=== PATIENT | male | born 1995 | race Caucasian/White ===

== ENCOUNTER 2018-03-16 15:28 | Inpatient (IN) | payer BC ==
--- NOTE | 2018-03-16 16:01 | ED ---
Substance Abuse/Use - HPI Summary HPI Summary: This is scribe Nicole James documenting for attending Kayode Barragan MD. 22 year old M BIB police on 941 to [facility] complains of altered mental status since two hours ago. Symptoms aggravated by nothing. Symptoms alleviated by nothing. Police report that aunt and mother called 911 because patient was not being himself. Police found patient on roof of his house, running around saying he was Batman. Per police, mother reports that patient's twin brother had psychotic break several months ago. Patient admits to smoking marijuana today. He states he slipped on roof and complains of abrasion on his left knee. - History Of Current Complaint Chief Complaint: EDOverdose Stated Complaint: 941 Time Seen by Provider: 03/16/18 15:50 Hx Obtained From: Patient, Other: - police Aggravating Factor(s): Nothing Alleviating Factor(s): Nothing - Allergies/Home Medications Allergies/Adverse Reactions: Allergies Allergy/AdvReac Type Severity Reaction Status Date / Time No Known Allergies Allergy Verified 03/16/18 15:41 Home Medications: Home Medications NK [No Home Medications Reported] 03/16/18 [History Confirmed 03/16/18] PMH/Surg Hx/FS Hx/Imm Hx Previously Healthy: No Endocrine/Hematology History: Denies: Hx Diabetes Cardiovascular History: Denies: Hx Hypertension Respiratory History: Denies: Hx Chronic Obstructive Pulmonary Disease (COPD) Sensory History: Reports: Hx Contacts or Glasses Opthamlomology History: Reports: Hx Contacts or Glasses Infectious Disease History: No Infectious Disease History: Denies: Traveled Outside the [place] in Last 30 Days - Family History Known Family History: Positive: Other - twin brother has hx psychotic break - Social History Alcohol Use: Occasionally Hx Substance Use: Yes Substance Use Type: Reports: Marijuana Hx Tobacco Use: Yes Smoking Status (MU): Former Smoker Review of Systems Positive: Other - abraison on left knee Positive: Other - altered mental status, patient admits to smoking marijuana All Other Systems Reviewed And Are Negative: Yes Physical Exam - Summary Physical Exam Summary: Appearance: The patient is well-nourished in no acute distress and in no acute pain. Skin: The skin is warm and dry and skin color reflects adequate perfusion. HEENT: The head is normocephalic and atraumatic. The pupils are 3-4 and reactive. The conjunctivae are clear and without drainage. Nares are patent and without drainage. Mouth reveals moist mucous membranes and the throat is without erythema and exudate. The external ears are intact. The ear canals are patent and without drainage. The tympanic membranes are intact. Neck: The neck is supple with full range of motion and non-tender. There are no carotid bruits. There is no neck vein distension. Respiratory: Chest is non-tender. Lungs are clear to auscultation and breath sounds are symmetrical and equal. Cardiovascular: Heart is regular rate and rhythm. There is no murmur or rub auscultated. There is no peripheral edema and pulses are symmetrical and equal. Abdomen: The abdomen is soft and non-tender. There are normal bowel sounds heard in all four quadrants and there is no organomegaly palpated. Musculoskeletal: There is no back tenderness noted. Extremities are non-tender with full range of motion. There is good capillary refill. There is no peripheral edema or calf tenderness elicited. Neurological: Patient is alert and oriented to person, place and time. The patient has symmetrical motor strength in all four extremities. Cranial nerves are grossly intact. Deep tendon reflexes are symmetrical and equal in all four extremities. Psychiatric: The patient has an appropriate affect and does not exhibit any anxiety or depression. Triage Information Reviewed: Yes Vital Signs On Initial Exam: Initial Vitals Temp Pulse Resp BP Pulse Ox 99.7 F 81 18 145/88 99 03/16/18 15:32 03/16/18 15:32 03/16/18 15:32 03/16/18 15:32 03/16/18 15:32 Vital Signs Reviewed: Yes Diagnostics - Vital Signs Vital Signs Temp Pulse Resp BP Pulse Ox 03/16/18 15:50 78 16 99 03/16/18 15:49 70 15 145/84 100 03/16/18 15:32 99.7 F 81 18 145/88 99 - Laboratory Result Diagrams: 03/16/18 16:19 03/16/18 16:19 Lab Statement: Any lab studies that have been ordered have been reviewed, and results considered in the medical decision making process. Course/Dx - Course Course Of Treatment: Mr. Abbott was brought in by the police. He was running around on the second story roof during a thunderstorm proclaiming that he was Batman. He did admit to smoking some marijuana today. His twin brother apparently suffered his initial psychotic break a few months ago. He sustained an abrasion to his left knee. Here in the emergency department he was manic but cooperative. Labs were obtained and his tox screen was positive only for marijuana. He is at this point awaiting mental health eval. He has been medically cleared. - Diagnoses Provider Diagnoses: Acute psychosis Discharge - Sign-Out/Discharge Documenting (check all that apply): Sign-Out Patient Signing out patient TO: Yazan Wyatt - awaiting MHE, pending dispo - Discharge Plan Referrals: No Primary Care Phys,NOPCP [Primary Care Provider] -
[2018-03-16 16:29] LABS: ABS Basophils 0.1 10^3/ul (0-0.2); ABS Eosinophils 0.4 10^3/ul (0-0.6); ABS Monocytes 1.3 10^3/ul (0-0.8); ABS Nucleated RBC 0 10^3/ul; Eosinophil % 2.7 % (0-6); Hematocrit 45 % (42-52); Hemoglobin 15.2 g/dl (14.0-18.0); Lymphocyte % 13.3 % (25-47); Mean Corpuscular HGB Conc 34 g/dl (31-36); Mean Corpuscular Hemoglobin 30 pg (27-31); Mean Corpuscular Volume 89 fL (80-94); Mean Platelet Volume 7.8 um3 (7.4-10.4); Nucleated Red Blood Cells % 0.1; Platelet Count 263 10^3/ul (150-450); Red Blood Count 4.99 10^6/ul (4.00-5.40); Red Cell Distribution Width 13 % (10.5-15); White Blood Count 14.8 10^3/ul (3.5-10.8)
[2018-03-16 18:03] LABS: Urine Appearance Clear; Urine Blood Negative (Negative); Urine Color Yellow; Urine Ketones Negative (Negative); Urine Protein Negative (Negative); Urine Specific Gravity 1.013 (1.010-1.030); Urine Urobilinogen Negative (Negative)
[2018-03-16] MEDS ORDERED: LORazepam TAB(*) 1 MG ONE (21:09)
[2018-03-16] MEDS ORDERED: LORazepam TAB(*) 1 MG PO ONE (21:10)
--- NOTE | 2018-03-16 22:01 | ED ---
Progress - Progress Note Progress Note: A B-52 was ordered due to the pt being non-cooperative. Re-Evaluation - Re-Evaluation First Eval Re-Evaluation Time: 21:56 Change: Worse Comment: Pt is non-cooperative. B-52 is ordered. Course/Dx - Course Course Of Treatment: A B-52 was ordered. Pending transfer. - Diagnoses Provider Diagnoses: Drug-induced mood disorder Discharge - Sign-Out/Discharge Documenting (check all that apply): Patient Departure - Transfer, Sign-Out Patient, Receiving Sign-Out Signing out patient TO: Patrick Clark Receiving patient FROM: Ravindra Tanner - Discharge Plan Referrals: No Primary Care Phys,NOPCP [Primary Care Provider] -
[2018-03-16] MEDS ORDERED: LORazepam INJ* 2 MG/ML 1 ML VIAL ONE (22:05)
[2018-03-16] MEDS ORDERED: diPHENhydraMINE IV* 50 MG/ML 1 ml VIAL (BENADRYL) ONE (22:05)
[2018-03-16] MEDS ORDERED: Haloperidol INJ IV/IM* 5 MG/ML AMP ONE (22:05)
[2018-03-17] MEDS ORDERED: Al Hydrox/Mg Hydrox/Simet LIQ* 30 ML UDC PO PRN (14:54)
[2018-03-17] MEDS ORDERED: Nicotine Inhaler* 10 MG AMP INH PRN (14:54)
[2018-03-17] MEDS ORDERED: Acetaminophen TAB* 325 MG PO PRN (14:54)
[2018-03-17] MEDS ORDERED: Haloperidol TAB* 5 MG ONE (15:12)
[2018-03-17] MEDS ORDERED: diPHENhydraMINE PO* 50 MG ONE (15:12)
[2018-03-17] MEDS: diPHENhydraMINE PO* 50 MG PO PRN ×2 (15:13→22:43)
[2018-03-17] MEDS: LORazepam TAB(*) 1 MG PO PRN ×2 (15:13→22:43)
[2018-03-17] MEDS: Haloperidol TAB* 5 MG PO PRN ×2 (15:13→22:42)
[2018-03-17] MEDS ORDERED: LORazepam INJ* 2 MG/ML 1 ML VIAL ONE (15:15)
[2018-03-17] MEDS ORDERED: diPHENhydraMINE IV* 50 MG/ML 1 ml VIAL (BENADRYL) ONE (15:16)
[2018-03-17] MEDS ORDERED: Haloperidol INJ IV/IM* 5 MG/ML AMP ONE (15:16)
[2018-03-17] MEDS ORDERED: OLANzapine TAB*ODT* 5 MG PO ONE (16:40)
[2018-03-17] MEDS ORDERED: OLANzapine TAB*ODT* 5 MG PO SCH (21:00)
[2018-03-18] MEDS: diPHENhydraMINE PO* 50 MG PO PRN (10:25)
[2018-03-18] MEDS ORDERED: OLANzapine TAB* 10 MG PO ONE (11:09)
--- NOTE | 2018-03-18 11:53 | HP ---
H&P (Free Text) History and Physical: JUSTIFICATION FOR ADMISSION: Patient presented to emergency room with worsening of psychotic agitation, delusional and disorganized thinking. He requires inpatient psychiatric admission in order to provide treatment and stabilization as he is a danger to himself and others. CHIEF COMPLAINT: "I want to leave Source of Information: Patient and chart review HISTORY OF THE PRESENT ILLNESS: Patient is 22 y/o male, single, living with parents in [place], studying a [employer] university , with history of no formal psychiatric disorder but history of abusing cannabis. Patient was admitted to inpatient unit for worsening of psychotic and delusional thinking with agitation, patient on the unit has been banging on the door, flipped his bed, restless, agitated, psychotic with delusional and disorganized thinking. Patient has been compliant with oral medication and also been given PRN to help with agitation and unstable mood and aggression. Patient reports that he has been consuming cannabis regularly and recently traveled to [place] with his friends for a vacation and his psychotic and delusional behavior lead to E.D visit and then hospitalization. Patient is hyper verbal, with decreased sleep, tangential thoughts, impulsivity and mood irritability. Patient reports no depression but do report some stress at college and believes that cannabis has been helping him. Patient denied any suicidal or homicidal ideation on the unit. Patient continued to exhibit behavior that is irrational, illogical, impulsive and delusional with extreme agitations and aggression requiring PRN medications. PAST PSYCHIATRIC HISTORY: Patient has history of no inpatient psychiatric hospitalization. Patient has history of no outpatient psychiatric treatment. Patient is on no psychotropic medications. Patient reports no inpatient or outpatient drug treatment. Patient has no history of suicidal thoughts or plan. Patient has history of no homicidal threats or attempt. Patient has history of aggressive and agitated behavior when decompensates and reports that he was a difficult child for his parents and would act out and not follow rules but has improved as he grows up. No access to firearm reported. SUBSTANCE ABUSE HISTORY: Patient uses cannabis daily unspecified amount with his friends. Urine toxicology was positive for cannabis. Last use was before E.D visit. Patient has been in no inpatient and outpatient treatment for drugs. PAST MEDICAL HISTORY: No active medical problems ALLERGIES: NKA FAMILY PSYCHIATRIC HISTORY: Patient has family history of bipolar disorder in his identical twin brother that was diagnoses couple of years ago and was treated with Zyprexa. Patient has history of cannabis abuse substance abuse in family and alleges that his father has used it for 40 years. No reported suicide in the family. FAMILY/PSYCHOSOCIAL HISTORY: Patient currently lives with parents in [place]. Patient is single and is studying at [employer] for last 2 years. Patient has no children. Patient was raised by both parents in [place], patient reports both him and his brother was a difficulty child and were oppositional with rules. Patient support system includes family and friends. REVIEW OF SYSTEMS: Patients review of symptoms was negative for any physical complaint. But patient has been agitated and unstable in his mood. Patients ED physical exam was reviewed which is grossly normal with no active medical problem. MENTAL STATUS EXAMINATION: Appearance: dressed in hospital gown, making limited eye contact, restless Behavior: agitated and, impulsive and superficially cooperative Gait: normal Abnormal motor activity: none Speech: hyper verbal, increased rate and rhythm, copious and pressured Mood: angry Affect: labile, irritable Thought process: illogical, tangential and disorganized Thought Content: Suicidal/Homicidal ideation: none Delusions: paranoid about his teacher being the reason he is in the hospital Obsessions: none Phobia: none Perceptual disturbance: Attention: limited Orientation: grossly intact Concentration: impaired Memory: fair but not able to coherently give details Insight: poor Judgment: poor Impulse control: poor IMPRESSION: Patient with history of no form al psychiatric diagnosis. Patient currently admitted due to worsening of psychosis and manic symptoms. Patient has also struggled with his cannabis abuse likely adding to his symptoms. Patient is a danger to self and others if discharged hence will be stabilized on inpatient unit with medication adjustments and therapy. DIAGNOSES: Psychotic Disorder unspecified, Cannabis Abuse PLAN: Admit to [facility] on Constant observation. Patient is full code. Patient is on involuntary admission status Integrate patient into the milieu and therapy. Social work consults for therapy and discharge planning Will hold family meeting with parents to increase Data base. Patient gave informed consent to start the following medications: Zyprexa as standing medication, currently on 5 mg at bedtime will increase to 10 mg HS. Patient was given one dose of Zyprexa 10 mg this morning for severe agitation and aggression. Will change Haldol and Ativan to Thorazine for PRN. Will continue to monitor and f/u for improvement and side effects. Joana Miller MD Attending Psychiatrist
[2018-03-18] MEDS: Divalproex DR TAB(*) 500 MG PO SCH ×2 (16:03→22:26)
[2018-03-18] MEDS ORDERED: diPHENhydraMINE PO* 50 MG PO SCH (21:00)
[2018-03-18] MEDS ORDERED: OLANzapine TAB*ODT* 5 MG PO SCH (21:00)
[2018-03-18] MEDS: chlorproMAZINE TAB* 25 MG PO PRN (22:31)
[2018-03-18] MEDS ORDERED: LORazepam TAB(*) 1 MG ONE (22:50)
[2018-03-18] MEDS ORDERED: LORazepam TAB(*) 1 MG PO ONE (23:00)
[2018-03-19] MEDS: diPHENhydraMINE PO* 50 MG PO PRN ×2 (01:35→08:20)
[2018-03-19] MEDS: Divalproex DR TAB(*) 500 MG PO SCH (08:20)
[2018-03-19] MEDS: chlorproMAZINE TAB* 25 MG PO PRN (11:08)
--- NOTE | 2018-03-19 11:19 | PN ---
Subjective - Subjective Date of Service: 03/19/18 Service Type: [id number] Hosp care 15 min low complexity Subjective: Patient was seen by self, discussed with treatment team, chart was reviewed. Patient has been compliant with his medications, no reported side effects. Patient has limited improvement in his symptoms of manic and psychosis. Patient continues think that his professor that dies 3 and half years ago is still alive. Patient persevered on his dream last night about that as well. Patient continued to be hyper verbal, easily distractable, euphoric to irritable in his mood, requires multiple redirections from staff. Patient sleeping has been erratic last night required multiple PRN medications that helped him to get about 3 + hours of interrupted sleep. Patient eating has been fair. Patient has been cooperative with his constant observation staff requiring multiple redirections. Patient behavior has been intermittently agitated but calms down with prns and redirections. Patient mood was more anxious today. Patient has been reporting no suicidal or homicidal ideation. No hallucinations reported. Objective - Appearance Appearance: Healthy Appearing Dysmorphic Features: No Grooming: Disheveled - Behavior Psychomotor Activities: Abnormal-Increased Exhibits Abnormal Movement: No - Attitude and Relatedness Attitude and Relatedness: Superficially Cooperative Eye Contact: Fair - Speech Quality: Pressured Latencies: Short Quantity: Copious - Mood Patient's Decription of Mood: "Great" - Affect Observed Affect: Labile Affect Consistent with: Euphoria - Thought Process Patient's Thought Process: Disorganized, Tangential Thought Content: Yes Paranoid Ideation, No Passive Wish, No Suicidal Planning, No Homicidal Ideation - Sensorium Experiencing Hallucinations: No, Sensorium is Clear Type of Hallucinations: Visual: No, Auditory: No, Command: No - Level of Consciousness Level of Consciousness: Alert Orientation: Yes Intact, Yes Orientated to Time, Yes Orientated to Place, Yes Orientated to Person - Impulse Control Impulse Control: Impaired - Insight and Judgement Insight and Judgement: Poor - Group Participation Particating in Group Activities: No - Medication Management Medication Management Adherence: Yes Assessment - Assessment Merits Inpatient Hospitalization: For Immediate Safety, For Stabilization, For Discharge Planning Inpatient DSM-V Dx: F31.2 Clinical Impression: Patient with history of no formal psychiatric diagnosis, presented to [facility] with manic and psychotic symptoms and was admitted to inpatient unit. Patient has also been abusing cannabis heavily unspecified amount. Patient is a danger to self if discharged hence medications are being adjusted and symptoms will be stabilized on inpatient. Plan - Plan Treatment Plan: Name: JAMIL STOKES Birthdate: 1995 [id number] - Patient continues to be hospitalized due to mood and behavioral instability, anxiety and impulsivity. - Patient's medications were adjusted after informed consent with initiation of seroquel 50mg QAM and 100mg QHS. Ativan was initiated for PRN anxiety. - Patient Depakote was increased to 500mg QAM and 750mg QHS. - Patient will be monitored for improvement and side effects. Risk and benefits were discussed. - Patient was encouraged to continue his participation in the milieu, group and individual therapy. Medications: Current Medications Acetaminophen (Tylenol Tab*) 650 mg PO Q4H PRN PRN Reason: for pain; or Temp >101 F Al Hydrox/Mg Hydrox/Simethicone (Maalox Plus*) 30 ml PO Q4H PRN PRN Reason: INDIGESTION Diphenhydramine HCl (Benadryl Po*) 50 mg PO Q6H PRN PRN Reason: ANXIETY Last Admin: 03/19/18 08:20 Dose: 50 mg Divalproex Sodium (Depakote Dr Tab(*)) 500 mg PO BID [facility] Last Admin: 03/19/18 08:20 Dose: 500 mg Lorazepam (Ativan Tab(*)) 2 mg PO Q6H PRN PRN Reason: ANXIETY Nicotine (Nicotine Inhaler*) 10 mg INH Q2H PRN PRN Reason: CRAVING Quetiapine Fumarate (Seroquel Tab*) 100 mg PO BEDTIME [facility] Quetiapine Fumarate (Seroquel Tab*) 50 mg PO DAILY [facility]
[2018-03-19] MEDS ORDERED: Divalproex DR TAB(*) 250 MG PO ONE (11:34)
[2018-03-19] MEDS ORDERED: Divalproex ER TAB(*) 250 MG ONE (11:47)
[2018-03-19] MEDS: LORazepam TAB(*) 1 MG PO PRN (11:48)
[2018-03-19] MEDS ORDERED: QUEtiapine TAB* 25 MG PO SCH (12:00)
--- NOTE | 2018-03-19 17:01 | PN ---
[facility]HU: Group Therapy Note - Service Type Service Type: [id number] Group Psychotherapy - Group Participation Patient Participating in Group: Yes Level of Group Participation: Attentive Relatedness to Group: Other - Additional Group Comments Group Comments: Patel related relatively psychotically during group. He was pleasant, although he began talking so personally about himself others in the group disengaged. he was pleasantly redirectable.
[2018-03-19] MEDS: Divalproex DR TAB(*) 250 MG PO SCH (20:47)
[2018-03-19] MEDS ORDERED: Divalproex DR TAB(*) 500 MG PO SCH (21:00)
[2018-03-19] MEDS ORDERED: QUEtiapine TAB* 100 MG PO SCH (21:00)
[2018-03-20] MEDS ORDERED: QUEtiapine TAB* 25 MG ONE (04:59)
[2018-03-20] MEDS: LORazepam TAB(*) 1 MG PO PRN (05:30)
[2018-03-20] MEDS: QUEtiapine TAB* 25 MG PO SCH (08:42)
[2018-03-20] MEDS: Divalproex DR TAB(*) 250 MG PO SCH ×2 (08:42→20:35)
[2018-03-20] MEDS ORDERED: Divalproex DR TAB(*) 500 MG PO SCH (09:00)
--- NOTE | 2018-03-20 12:46 | PN ---
Subjective - Subjective Date of Service: 03/20/18 Service Type: 11133 Hosp care 15 min low complexity Subjective: Patient was seen by self, discussed with treatment team, chart was reviewed. Patient has been compliant with his medications, no reported side effects. Patient has some more improvement in his symptoms of mitch and psychosis. Patient still disorganized in his thinking and behavior but some improvement. Patient reported being closed to his teacher that and he was earlier during this hospitalization talk about possibility of him being alive. Patient was able to understand irreversibility of his and was not blaming himself for his teachers . Patient was less hyper verbal, easily distracted , less labile, less euphoric in his mood, still requires multiple redirections from staff. Patient sleeping was less erratic last night required and was able to sleep little better than last night. Patient required Ativan concrete worker to help with anxiety. Patient eating has been fair. Patient has been cooperative with his constant observation staff requiring multiple redirections. Patient behavior has been less agitated and calms down with support redirections. Patient mood was less anxious today. Patient has been reporting no suicidal or homicidal ideation. No hallucinations reported. Objective - Appearance Appearance: Healthy Appearing Dysmorphic Features: No Hygiene: Normal Grooming: Fairly Well Kept - Behavior Psychomotor Activities: Abnormal-Increased - Attitude and Relatedness Attitude and Relatedness: Superficially Cooperative Eye Contact: Fair - Speech Quality: Pressured - less Latencies: Short Quantity: Copious - less - Mood Patient's Decription of Mood: "Great" - Affect Observed Affect: Labile Affect Consistent with: Euphoria - Thought Process Patient's Thought Process: Disorganized - less, Tangential - less Thought Content: No Passive Wish, No Suicidal Planning, No Homicidal Ideation, No Paranoid Ideation - Sensorium Experiencing Hallucinations: No, Sensorium is Clear Type of Hallucinations: Visual: No, Auditory: No, Command: No - Level of Consciousness Level of Consciousness: Alert Orientation: Yes Intact, Yes Orientated to Time, Yes Orientated to Place, Yes Orientated to Person - Impulse Control Impulse Control: Impaired - Insight and Judgement Insight and Judgement: Poor - Group Participation Particating in Group Activities: Yes - Medication Management Medication Management Adherence: Yes Assessment - Assessment Merits Inpatient Hospitalization: For Immediate Safety, For Stabilization, For Discharge Planning 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 Patient has also been abusing cannabis heavily unspecified amount. Patient is a danger to self if discharged hence medications are being adjusted and symptoms will be stabilized on inpatient. Plan - Plan Treatment Plan: Name: JAMIL STOKES Birthdate: 1995 [id number] - Patient continues to be hospitalized due to mood and behavioral instability, anxiety and impulsivity. - Patient's medications were adjusted after informed consent with increment of seroquel to 50mg QAM and 150mg QHS. Ativan for PRN anxiety. - Patient Depakote was increased to 750mg BID and will depakote levels to be obtained 03/22/18 with cmp. - Patient will be monitored for improvement and side effects. Risk and benefits were discussed. - Patient was encouraged to continue his participation in the milieu, group and individual therapy. Medications: Current Medications Acetaminophen (Tylenol Tab*) 650 mg PO Q4H PRN PRN Reason: for pain; or Temp >101 F Al Hydrox/Mg Hydrox/Simethicone (Maalox Plus*) 30 ml PO Q4H PRN PRN Reason: INDIGESTION Diphenhydramine HCl (Benadryl Po*) 50 mg PO Q6H PRN PRN Reason: ANXIETY Last Admin: 03/19/18 08:20 Dose: 50 mg Divalproex Sodium (Depakote Dr Tab(*)) 750 mg PO BID [facility] Last Admin: 03/20/18 08:42 Dose: 750 mg Lorazepam (Ativan Tab(*)) 2 mg PO Q6H PRN PRN Reason: ANXIETY Last Admin: 03/20/18 05:30 Dose: 2 mg Nicotine (Nicotine Inhaler*) 10 mg INH Q2H PRN PRN Reason: CRAVING Quetiapine Fumarate (Seroquel Tab*) 50 mg PO 0900 [facility] Last Admin: 03/20/18 08:42 Dose: 50 mg Quetiapine Fumarate (Seroquel Tab*) 150 mg PO BEDTIME [facility] - Discharge Plan Discharge Plan: Outpatient Follow Up
[2018-03-20] MEDS: QUEtiapine TAB* 100 MG PO SCH (20:35)
[2018-03-21] MEDS: Divalproex DR TAB(*) 250 MG PO SCH ×2 (08:55→20:52)
[2018-03-21] MEDS: QUEtiapine TAB* 25 MG PO SCH (08:55)
[2018-03-21] MEDS: QUEtiapine TAB* 100 MG PO SCH (20:52)
[2018-03-22] MEDS: QUEtiapine TAB* 25 MG PO SCH (11:51)
[2018-03-22] MEDS: Divalproex DR TAB(*) 250 MG PO SCH ×2 (11:51→20:30)
[2018-03-22 11:57] LABS: EGFR Non-African American 99.9 (>60)
--- NOTE | 2018-03-22 17:05 | PN ---
Subjective - Subjective Date of Service: 03/22/18 Service Type: [id number] Hosp care 15 min low complexity Subjective: Jamil finally came out of his room and spoke with me and nursing staffs. He continues to be somewhat pressured but more organized, less pressured, less loud but still preoccupied with whatever had happened with his teacher and his tween brother. Denies hallucinations, delusions, SI or HI. Objective - Appearance Appearance: Well Developed/Nourished, Healthy Appearing Dysmorphic Features: No Hygiene: Normal Grooming: Well Kept - Behavior Psychomotor Activities: Abnormal-Increased Exhibits Abnormal Movement: No - Attitude and Relatedness Attitude and Relatedness: Cooperative Eye Contact: Good - Speech Quality: Pressured Latencies: Short Quantity: Copious - Mood Patient's Decription of Mood: "Great" - Affect Observed Affect: Euphoric - Thought Process Patient's Thought Process: Coherent, Filght of Ideas, Circumstantial Thought Content: No Passive Wish, No Suicidal Planning, No Homicidal Ideation, No Paranoid Ideation - Sensorium Experiencing Hallucinations: No, Sensorium is Clear Type of Hallucinations: Visual: No, Auditory: No, Command: No - Level of Consciousness Level of Consciousness: Alert Orientation: Yes Intact, Yes Orientated to Time, Yes Orientated to Place, Yes Orientated to Person - Impulse Control Impulse Control: Intact - Insight and Judgement Insight and Judgement: Poor - Group Participation Particating in Group Activities: No - Medication Management Medication Management Adherence: Yes Assessment - Assessment Merits Inpatient Hospitalization: For Immediate Safety, For Stabilization, For Discharge Planning Inpatient DSM-V Dx: F31.2 Plan - Plan Treatment Plan: Name: JAMIL STOKES Birthdate: 1995 [id number] Continued Medication Management: Continue Outpt Medication Medications: Current Medications Acetaminophen (Tylenol Tab*) 650 mg PO Q4H PRN PRN Reason: for pain; or Temp >101 F Al Hydrox/Mg Hydrox/Simethicone (Maalox Plus*) 30 ml PO Q4H PRN PRN Reason: INDIGESTION Diphenhydramine HCl (Benadryl Po*) 50 mg PO Q6H PRN PRN Reason: ANXIETY Last Admin: 03/19/18 08:20 Dose: 50 mg Divalproex Sodium (Depakote Dr Tab(*)) 750 mg PO BID [facility] Last Admin: 03/22/18 11:51 Dose: 750 mg Lorazepam (Ativan Tab(*)) 2 mg PO Q6H PRN PRN Reason: ANXIETY Last Admin: 03/20/18 05:30 Dose: 2 mg Nicotine (Nicotine Inhaler*) 10 mg INH Q2H PRN PRN Reason: CRAVING Quetiapine Fumarate (Seroquel Tab*) 50 mg PO 0900 [facility] Last Admin: 03/22/18 11:51 Dose: 50 mg Quetiapine Fumarate (Seroquel Tab*) 150 mg PO BEDTIME [facility] Last Admin: 03/21/18 20:52 Dose: 150 mg - Discharge Plan Discharge Plan: Outpatient Follow Up Outpatient Program: [facility]
[2018-03-22] MEDS: QUEtiapine TAB* 100 MG PO SCH (20:30)
[2018-03-23] MEDS: QUEtiapine TAB* 25 MG PO SCH (08:20)
[2018-03-23] MEDS: Divalproex DR TAB(*) 250 MG PO SCH ×2 (08:21→21:26)
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
[2018-03-23] MEDS ORDERED: QUEtiapine TAB* 100 MG PO SCH (21:00)
[2018-03-24 08:28] VITALS: BP 136/96
[2018-03-24] MEDS: Divalproex DR TAB(*) 250 MG PO SCH (08:48)
[2018-03-24] MEDS ORDERED: QUEtiapine TAB* 25 MG PO SCH (09:00)
--- NOTE | 2018-03-24 11:32 | PN ---
[facility]: Group Therapy Note - Service Type Service Type: 08448 Group Psychotherapy - Cognitive Behavioral Group Therapy ( CBT):Patient was attentive and participatory in CBT programming this morning, and remained in good behavioral control. Patient expressed positive insights regarding relevant treatment interventions and goals.
--- NOTE | 2018-03-24 13:05 | DS ---
Subjective - Subjective Service Types: 02572 [facility] Day Mgmt simple under 30 min Discharge Date: 03/24/18 Subjective: JUSTIFICATION FOR ADMISSION: Patient presented to emergency room with worsening of psychotic agitation, delusional and disorganized thinking. He requires inpatient psychiatric admission in order to provide treatment and stabilization as he is a danger to himself and others. CHIEF COMPLAINT: "I want to leave Source of Information: Patient and chart review HISTORY OF THE PRESENT ILLNESS: Patient is 22 y/o male, single, living with parents in [place], studying a [employer] , with history of no formal psychiatric disorder but history of abusing cannabis. Patient was admitted to inpatient unit for worsening of psychotic and delusional thinking with agitation, patient on the unit has been banging on the door, flipped his bed, restless, agitated, psychotic with delusional and disorganized thinking. Patient has been compliant with oral medication and also been given PRN to help with agitation and unstable mood and aggression. Patient reports that he has been consuming cannabis regularly and recently traveled to [place] with his friends for a vacation and his psychotic and delusional behavior lead to E.D visit and then hospitalization. Patient is hyper verbal, with decreased sleep, tangential thoughts, impulsivity and mood irritability. Patient reports no depression but do report some stress at college and believes that cannabis has been helping him. Patient denied any suicidal or homicidal ideation on the unit. Patient continued to exhibit behavior that is irrational, illogical, impulsive and delusional with extreme agitations and aggression requiring PRN medications. PAST PSYCHIATRIC HISTORY: Patient has history of no inpatient psychiatric hospitalization. Patient has history of no outpatient psychiatric treatment. Patient is on no psychotropic medications. Patient reports no inpatient or outpatient drug treatment. Patient has no history of suicidal thoughts or plan. Patient has history of no homicidal threats or attempt. Patient has history of aggressive and agitated behavior when decompensates and reports that he was a difficult child for his parents and would act out and not follow rules but has improved as he grows up. No access to firearm reported. SUBSTANCE ABUSE HISTORY: Patient uses cannabis daily unspecified amount with his friends. Urine toxicology was positive for cannabis. Last use was before E.D visit. Patient has been in no inpatient and outpatient treatment for drugs. PAST MEDICAL HISTORY: No active medical problems ALLERGIES: NKA FAMILY PSYCHIATRIC HISTORY: Patient has family history of bipolar disorder in his identical twin brother that was diagnoses couple of years ago and was treated with Zyprexa. Patient has history of cannabis abuse substance abuse in family and alleges that his father has used it for 40 years. No reported suicide in the family. FAMILY/PSYCHOSOCIAL HISTORY: Patient currently lives with parents in [place]. Patient is single and is studying at [employer] for last 2 years. Patient has no children. Patient was raised by both parents in [place], patient reports both him and his brother was a difficulty child and were oppositional with rules. Patient support system includes family and friends. REVIEW OF SYSTEMS: Patients review of symptoms was negative for any physical complaint. But patient has been agitated and unstable in his mood. Patients ED physical exam was reviewed which is grossly normal with no active medical problem. MENTAL STATUS EXAMINATION on ADMISSION: Appearance: dressed in hospital gown, making limited eye contact, restless Behavior: agitated and, impulsive and superficially cooperative Gait: normal Abnormal motor activity: none Speech: hyper verbal, increased rate and rhythm, copious and pressured Mood: angry Affect: labile, irritable Thought process: illogical, tangential and disorganized Thought Content: Suicidal/Homicidal ideation: none Delusions: paranoid about his teacher being the reason he is in the hospital Obsessions: none Phobia: none Perceptual disturbance: Attention: limited Orientation: grossly intact Concentration: impaired Memory: fair but not able to coherently give details Insight: poor Judgment: poor Impulse control: poor Objective - Appearance Appearance: Healthy Appearing Dysmorphic Features: No Hygiene: Normal Grooming: Fairly Well Kept - Behavior Psychomotor Activities: Normal Exhibits Abnormal Movement: No - Attitude and Relatedness Attitude and Relatedness: Cooperative Eye Contact: Fair - Speech Quality: Unpressured Latencies: Normal Quantity: Appropriate - Mood Patient's Decription of Mood: "Good" - Affect Observed Affect: Fair Affect Consistent with: Euthymia - Thought Process Patient's Thought Process: Coherent Thought Content: No Passive Wish, No Suicidal Planning, No Homicidal Ideation, No Paranoid Ideation - Sensorium Experiencing Hallucinations: No, Sensorium is Clear Type of Hallucinations: Visual: No, Auditory: No, Command: No - Level of Consciousness Level of Consciousness: Alert Orientation: Yes Intact, Yes Orientated to Time, Yes Orientated to Place, Yes Orientated to Person - Impulse Control Impulse Control: Intact - Insight and Judgement Insight and Judgement: Good - Group Participation Particating in Group Activities: Yes - Medication Management Medication Management Adherence: Yes Treatment Course & Assessment Clinical Course & Impression: Patient with history of no formal psychiatric diagnosis, presented to [facility] with manic and psychotic symptoms and was admitted to inpatient unit. Patient was also abusing cannabis heavily unspecified amount. Patient was a danger to self if discharged hence medications were adjusted and symptoms will be stabilized on inpatient. Patient was admitted to [facility] on Constant observation. Patient was on involuntary admission status. Patient was into the milieu and therapy. Patient gave informed consent and was started on Zyprexa as standing medication at 5 mg at bedtime with plan to uptitrate as tolerated. With plan to monitor and follow up for improvement and side effects. Patient was also started on Depakote 500mg BID. Patient has limited improvement in his symptoms of manic and psychosis with Zyprexa. Patient continues to think that his professor that 3 and half years ago is still alive. Patient continued to be hyper verbal, easily distractable, euphoric to irritable in his mood, requires multiple redirections from staff. Patient sleeping was erratic required multiple PRN medications that helped him to get about 3 + hours of interrupted sleep. Patient has been cooperative with his constant observation staff requiring multiple redirections. Patient behavior was intermittently agitated but calms down with prns and redirections. Patient's medications were adjusted with d/c of Zyprexa and initiation of seroquel 50mg QAM and 100mg QHS. Ativan was initiated for PRN anxiety. Patient Depakote was increased to 500mg QAM and 750mg QHS and then 750 mg BID. Patient was some what responding to treatment although was still disorganized in his thinking and behavior. Patient reported being closed to his teacher that and he was talking about possibility of him being alive during early phase of hospitalization. Patient was able to understand irreversibility of his and was not blaming himself for his teachers . Patient was less hyper verbal, easily distracted, less labile, less euphoric in his mood, still required multiple redirections from staff. Patient sleeping was less erratic and disturbed. Patient Depakote was continued at 750 mg BID with Depakote level of 97.0. Patient's Seroquel at bedtime was gradually increased to 200mg HS. Patient responded well to the treatment, was not manic or psychotic. Symptoms resolved. Family meeting was arranged to discuss and treatment and discharge planning. Patient was not a danger to self and others. Patient was caring for himself. Patient was sleeping and eating well. Patient denied any si/hi, no delusions or disorganized thinking. Patient was discussed with team and was discharged with plan to f/u outpatient. patient and family agreed. 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 Discharge Planning - Discharge Planning Discharge Plan: Outpatient Follow Up Recommendations for Continuing Care: Medication Management, Psychotherapy Medications: Discharge Medications Divalproex Sodium (Depakote Dr Tab(*)) 750 mg PO BID [facility] Last Admin: 03/24/18 08:48 Dose: 750 mg Quetiapine Fumarate (Seroquel Tab*) 200 mg PO BEDTIME [facility] Last Admin: 03/23/18 21:26 Dose: 200 mg Quetiapine Fumarate (Seroquel Tab*) 50 mg PO DAILY [facility] Last Admin: 03/24/18 08:49 Dose: 50 mg Patient given 14 days of supply and 1 refill Discharge Planning: Prescriptions provided for discharge [x] Yes [] No Follow up care details as per social work arrangements. Patient response to discharge plan: [x] eager for discharge [] agreeable with discharge plan [] ambivalent about discharge [] disagrees with discharge today
== END 2018-03-24 13:00 | disposition home or self-care (01) | DRG 753 ==
LOC: ED 15:28 → BSU 03-17 14:55
PROVIDERS: ADMIT Psychiatry & Neurology Psychiatry; ATTEND Psychiatry & Neurology Psychiatry
PROC: GZHZZZZ Group Psychotherapy (ICD-10-PCS; principal; 2018-03-19)
DX: F31.2 Bipolar disorder, current episode manic severe with psychotic features (principal); S80.212A Abrasion, left knee, initial encounter; F12.10 Cannabis abuse, uncomplicated; R45.1 Restlessness and agitation; F41.9 Anxiety disorder, unspecified; W01.0XXA Fall on same level from slipping, tripping and stumbling without subsequent striking against object, initial encounter; Y92.009 Unspecified place in unspecified non-institutional (private) residence as the place of occurrence of the external cause; Z72.89 Other problems related to lifestyle; Z87.891 Personal history of nicotine dependence; Z81.3 Family history of other psychoactive substance abuse and dependence; Z81.8 Family history of other mental and behavioral disorders
CPT/HCPCS: 36415; 80053; 80061; 80164; 80307; 80320; 80329; 81003; 83036; 84443; 85025; 90853; 93005; 99222; 99231; 99238; 99282; A9270-GY; G0480; J1200; J1630; J2060